=== PATIENT | male | born 1990 | race Caucasian/White ===

== ENCOUNTER 2017-08-30 20:18 | Emergency (ER) | payer OTHER ==
[~2017-08-30] VITALS: Ht 167.6 cm; Wt 70.3 kg
[~2017-08-30 20:18] MED LIST: ANAPROX DS550 MG PO; MOTRIN800 MG PO; Nizoral 2%15 GM PO; Vibra-Tab100 MG PO
== END 2017-08-30 22:36 | disposition home or self-care (01) ==
LOC: ED 20:18
DX: S40.212A Abrasion of left shoulder, initial encounter (principal); S30.811A Abrasion of abdominal wall, initial encounter; S09.90XA Unspecified injury of head, initial encounter; F17.200 Nicotine dependence, unspecified, uncomplicated; Y08.89XA Assault by other specified means, initial encounter; Y93.89 Activity, other specified; Y92.89 Other specified places as the place of occurrence of the external cause; Y99.9 Unspecified external cause status